=== PATIENT | female | born 1940 | race Caucasian/White ===

== ENCOUNTER 2023-07-15 17:15 | Inpatient (IN) | payer OTHER, MEDICAID ==
[~2023-07-15] VITALS: Ht 160 cm; Wt 99.5 kg
[2023-07-15 17:33] VITALS: PULSE 50; RESP 20; O2SAT 98
[2023-07-15 18:26] LABS: Basophils # (auto) 0 10 ^3/uL (0-0.2); Basophils % (auto) 0.6 % (0.0-2.0); Eosinophils # (auto) 0 10 ^3/uL (0-0.8); Eosinophils % (auto) 0.5 % (0.0-7.0); Hematocrit 40.4 % (36.0-46.0); Hemoglobin 12.8 g/dL (12.2-16.2); Lymphocytes # (auto) 1.2 10 ^3/uL (0.4-5.4); Lymphocytes % (auto) 18.3 % (10.0-50.0); Mean Corpuscular Hemoglobin 31.3 pg (28.0-32.0); Mean Corpuscular Hgb Conc. 31.7 g/dL (32.0-36.0); Mean Corpuscular Volume 98.8 fL (80.0-100.0); Monocytes # (auto) 0.5 10 ^3/uL (0-1.3); Monocytes % (auto) 6.8 % (0.0-12.0); Neutrophils % (auto) 73.8 % (37.0-80.0); Nucleated Red Blood Cells % 0.5 %; Red Blood Cells 4.08 10^6/uL (4.0-5.20); Red Cell Distribution Width 18.1 % (11.8-14.3); White Blood Cell 6.8 10^3/uL (4.4-10.8)
[2023-07-15 18:45] VITALS: PULSE 44; O2SAT 96
[2023-07-15 18:45] LABS: Alanine Aminotransferase 34 U/L (7-40); Albumin 3.5 g/dL (3.2-4.8); Alkaline Phosphatase 274 U/L (46-116); Anion Gap 4 (5-15); Aspartate Aminotransferase 37 U/L (13-40); BUN/Creatinine Ratio 38.5 (10.0-20.0); Bilirubin, Total 0.4 mg/dL (0.2-1.0); Blood Urea Nitrogen 25 mg/dL (9-23); Calcium 8.8 mg/dL (8.7-10.4); Carbon Dioxide 29 mmol/L (20-30); Chloride 105 mmol/L (98-107); Glucose 137 mg/dL (74-106); Potassium 5.1 mmol/L (3.5-5.1); Sodium 138 mmol/L (136-145); Total Protein 6.2 g/dL (5.7-8.2)
[2023-07-15] MEDS: ATROPINE SULF 1 MG/10ml SYR IV ONE (18:55)
[2023-07-15] MEDS: GLUCAGON EMERG KIT 1mg/1ml IV ONE ×2 (19:06→20:43)
[2023-07-15] MEDS: DOPamine 1600MCG/ML D5W 250 ML IV ONE (19:20)
[2023-07-15 19:28] LABS: Base Excess -0.4 mmol/L (-2.0-2.0)
[2023-07-15] MEDS: GLUCAGON EMERG KIT 1mg/1ml ONE (19:28)
[2023-07-15 19:30] VITALS: PULSE 42; RESP 15; O2SAT 95
[2023-07-15] MEDS: SODIUM BICARB 50mEq/50ml Vial 50 ML in SOD CHL 0.45% 1,000 ML IV ONE (19:51)
[2023-07-15] MEDS: ENOXAPARIN SOD 100 MG/1 ML SYRINGE SC ONE (19:54)
[2023-07-15 20:30] VITALS: BP 125/62; PULSE 56; O2SAT 95
[2023-07-15] MEDS: IOHEXOL 350 MG/ML 100ML IJ ONE (20:44)
[2023-07-15 21:30] VITALS: BP 112/51; PULSE 87; RESP 23; O2SAT 93
[2023-07-15] MEDS: MORPHINE SULFATE 4 MG/ML SYR/VIAL IV ONE (21:34)
[2023-07-15] MEDS: ONDANSETRON HCL 4 MG/2 ML VIAL IV ONE (21:34)
[2023-07-15] MEDS ORDERED: NITROGLYCERIN 0.4 MG SL TAB SL PRN (21:45)
[2023-07-15] MEDS ORDERED: ONDANSETRON HCL 4 MG/2 ML VIAL IV PRN (21:45)
[2023-07-15] MEDS ORDERED: MORPHINE SULFATE INJ 2 MG/ml SYRG IV PRN (21:45)
[2023-07-15] MEDS: ATORVASTATIN 20 MG TAB PO SCH (22:00)
[2023-07-15 22:08] LABS: Urine Bacteria FEW /hpf (None Seen); Urine Blood Negative /uL (Negative); Urine Clarity Clear (Clear); Urine Color Yellow (Yellow); Urine Hyaline Cast FEW /lpf (0 - 2); Urine Mucus FEW (None Seen); Urine Protein, UAD 1+ (Negative); Urine Urobilinogen 2 mg/dL (Negative); Urine WBC 1 /hpf (0 - 5); Urine pH 5.5 (5.0-9.0)
[2023-07-15 22:30] VITALS: BP 109/51; PULSE 94; O2SAT 95
[2023-07-16] VITALS (102 sets, daily range): BP systolic 80–130; BP diastolic 14–73; PULSE 58–95; RESP 8–24; TEMP 94.6–99.5; O2SAT 91–97
[2023-07-16] MEDS: ALBUTEROL SULF 2.5 MG/0.5ML(0.5%) NEB SOLN NEB PRN (00:06)
[2023-07-16 00:59] LABS: Base Excess -3.2 mmol/L (-2.0-2.0)
[2023-07-16] MEDS: DOPamine 1600MCG/ML D5W 250 ML IV SCH (02:00)
[2023-07-16 03:51] LABS: Basophils # (auto) 0 10 ^3/uL (0-0.2); Basophils % (auto) 0.1 % (0.0-2.0); Eosinophils # (auto) 0 10 ^3/uL (0-0.8); Eosinophils % (auto) 0.1 % (0.0-7.0); Hematocrit 42.5 % (36.0-46.0); Hemoglobin 13.5 g/dL (12.2-16.2); Lymphocytes # (auto) 0.9 10 ^3/uL (0.4-5.4); Lymphocytes % (auto) 5.9 % (10.0-50.0); Mean Corpuscular Hemoglobin 30.8 pg (28.0-32.0); Mean Corpuscular Hgb Conc. 31.7 g/dL (32.0-36.0); Mean Corpuscular Volume 97.4 fL (80.0-100.0); Monocytes # (auto) 1.5 10 ^3/uL (0-1.3); Monocytes % (auto) 10.5 % (0.0-12.0); Neutrophils # (auto) 12.2 10 ^3/uL (1.6-8.6); Neutrophils % (auto) 83.4 % (37.0-80.0); Nucleated Red Blood Cells % 0.1 %; Red Blood Cells 4.37 10^6/uL (4.0-5.20); Red Cell Distribution Width 18.5 % (11.8-14.3); White Blood Cell 14.6 10^3/uL (4.4-10.8)
[2023-07-16 04:05] LABS: Alanine Aminotransferase 37 U/L (7-40); Albumin 3.7 g/dL (3.2-4.8); Alkaline Phosphatase 296 U/L (46-116); Anion Gap 4 (5-15); Aspartate Aminotransferase 41 U/L (13-40); BUN/Creatinine Ratio 31.4 (10.0-20.0); Bilirubin, Total 0.4 mg/dL (0.2-1.0); Blood Urea Nitrogen 22 mg/dL (9-23); Carbon Dioxide 30 mmol/L (20-30); Chloride 102 mmol/L (98-107); Glucose 152 mg/dL (74-106); Potassium 4.9 mmol/L (3.5-5.1); Sodium 136 mmol/L (136-145); Total Protein 6.8 g/dL (5.7-8.2)
[2023-07-16 07:29] LABS: Base Excess -0.8 mmol/L (-2.0-2.0)
[2023-07-16 08:39] LABS: INR 1.03 (0.9-1.15); Partial Thromboplastin Time 32.7 SEC (24.5-34.5); Prothrombin Time 10.9 sec (9.3-11.8)
[2023-07-16] MEDS ORDERED: cefTRIAXone 1GM/50ML D5W 50 ML IV SCH (09:00)
[2023-07-16] MEDS: FUROSEMIDE 40 MG/4 ML VIAL IV SCH (09:45)
[2023-07-16] MEDS: ENOXAPARIN SOD 40 MG/0.4 ML SYRINGE SC SCH (09:45)
[2023-07-16] MEDS: DOXYCYCLINE 100MG/250ML 250 ML IV SCH (09:46)
[2023-07-16] MEDS ORDERED: FUROSEMIDE 40 MG TAB PO SCH (10:00)
[2023-07-16] MEDS ORDERED: HYDROcodone-ACET 5/325MG TAB PO PRN (11:15)
[2023-07-16] MEDS ORDERED: levoFLOXacin 750MG 150 ML IV SCH (11:16)
[2023-07-16 11:22] LABS: Base Excess 0.5 mmol/L (-2.0-2.0)
[2023-07-16 11:29] LABS: Base Excess -0.2 mmol/L (-2.0-2.0)
[2023-07-16] MEDS ORDERED: VANCOMYCIN PER PHARMACY 0 MG IV SCH (12:15)
[2023-07-16] MEDS: NOREPINEPHRINE 8 MG/250ML KIT 250 ML IV SCH (13:00)
[2023-07-16] MEDS: NOREPINEPHRINE 8 MG/250ML KIT 250 ML IV ONE (13:06)
[2023-07-16] MEDS: VANCOMYCIN 1GM/200ML 200 ML IV ONE (13:21)
[2023-07-16] MEDS: CEFEPIME 2GM/50ML NS 50 ML IV ONE (14:22)
[2023-07-16] MEDS: PANTOPRAZOLE 40 MG/10 ML VIAL INJ IV ONE (14:22)
[2023-07-16 19:28] LABS: COVID19 ANTIGEN SOFIA FIA NEGATIVE (NEGATIVE); Rapid Influenza A Negative (Negative)
[2023-07-16 19:30] LABS: Rapid Influenza B Positive (Negative)
[2023-07-16] MEDS: CEFEPIME 2GM/50ML NS 50 ML IV SCH (21:54)
[2023-07-16] MEDS: NYSTATIN TOPICAL POWDER 15GM TOP SCH (21:55)
[2023-07-17] VITALS (110 sets, daily range): BP systolic 62–146; BP diastolic 18–115; PULSE 45–96; RESP 10–26; TEMP 96.8–99.7; O2SAT 88–100
[2023-07-17] MEDS: MORPHINE SULFATE 4 MG/ML SYR/VIAL IV PRN (02:51)
[2023-07-17 03:37] LABS: Basophils # (auto) 0 10 ^3/uL (0-0.2); Basophils % (auto) 0.2 % (0.0-2.0); Eosinophils # (auto) 0 10 ^3/uL (0-0.8); Eosinophils % (auto) 0.1 % (0.0-7.0); Hematocrit 34.7 % (36.0-46.0); Hemoglobin 11.4 g/dL (12.2-16.2); Lymphocytes # (auto) 1.3 10 ^3/uL (0.4-5.4); Mean Corpuscular Hemoglobin 31.8 pg (28.0-32.0); Mean Corpuscular Hgb Conc. 32.8 g/dL (32.0-36.0); Mean Corpuscular Volume 96.9 fL (80.0-100.0); Monocytes # (auto) 1.1 10 ^3/uL (0-1.3); Neutrophils # (auto) 10.1 10 ^3/uL (1.6-8.6); Neutrophils % (auto) 80.7 % (37.0-80.0); Nucleated Red Blood Cells % 0.1 %; Red Blood Cells 3.58 10^6/uL (4.0-5.20); Red Cell Distribution Width 17.4 % (11.8-14.3); White Blood Cell 12.5 10^3/uL (4.4-10.8)
[2023-07-17 03:56] LABS: Alanine Aminotransferase 24 U/L (7-40); Albumin 3.1 g/dL (3.2-4.8); Alkaline Phosphatase 222 U/L (46-116); Anion Gap 6 (5-15); Aspartate Aminotransferase 22 U/L (13-40); BUN/Creatinine Ratio 30.4 (10.0-20.0); Bilirubin, Total 0.5 mg/dL (0.2-1.0); Blood Urea Nitrogen 28 mg/dL (9-23); Calcium 8.6 mg/dL (8.7-10.4); Carbon Dioxide 27 mmol/L (20-30); Chloride 101 mmol/L (98-107); Glucose 133 mg/dL (74-106); Magnesium 1.8 mg/dL (1.6-2.6); Potassium 4.8 mmol/L (3.5-5.1); Sodium 134 mmol/L (136-145); Total Protein 5.7 g/dL (5.7-8.2)
[2023-07-17] MEDS: PANTOPRAZOLE 40 MG/10 ML VIAL INJ IV SCH (07:59)
[2023-07-17 08:10] LABS: Base Excess -0.3 mmol/L (-2.0-2.0)
[2023-07-17] MEDS: OSELTAMIVIR 75 MG CAP PO ONE (08:30)
[2023-07-17] MEDS: VANCOMYCIN 1GM/200ML 200 ML IV SCH (08:36)
[2023-07-17] MEDS: OSELTAMIVIR 30 MG CAP PO SCH (10:00)
[2023-07-17] MEDS: DOPamine 1600MCG/ML D5W 250 ML IV SCH ×2 (11:00→16:30)
[2023-07-17] MEDS: LIDOCAINE 5% TOPICAL PATCH TOP ONE (13:00)
[2023-07-17] MEDS: LEVOTHYROXINE SODIUM 112 MCG TAB PO SCH (17:18)
[2023-07-17] MEDS: LEVOTHYROXINE SODIUM 25 MCG TAB PO SCH (17:21)
[2023-07-17] MEDS: LATANOPROST 0.005 % OPTH(EYE) SOL 2.5ML EACHEYE SCH (20:11)
[2023-07-18] VITALS (112 sets, daily range): BP systolic 70–164; BP diastolic 22–145; PULSE 57–90; RESP 10–28; TEMP 96.8–98; O2SAT 93–99
[2023-07-18 04:21] LABS: Basophils # (auto) 0 10 ^3/uL (0-0.2); Basophils % (auto) 0.2 % (0.0-2.0); Eosinophils # (auto) 0.1 10 ^3/uL (0-0.8); Eosinophils % (auto) 0.5 % (0.0-7.0); Hematocrit 27.4 % (36.0-46.0); Hemoglobin 9.2 g/dL (12.2-16.2); Lymphocytes # (auto) 1.1 10 ^3/uL (0.4-5.4); Lymphocytes % (auto) 9.3 % (10.0-50.0); Mean Corpuscular Hemoglobin 32.2 pg (28.0-32.0); Mean Corpuscular Hgb Conc. 33.4 g/dL (32.0-36.0); Mean Corpuscular Volume 96.4 fL (80.0-100.0); Monocytes % (auto) 8.1 % (0.0-12.0); Neutrophils # (auto) 10.1 10 ^3/uL (1.6-8.6); Neutrophils % (auto) 81.9 % (37.0-80.0); Red Blood Cells 2.85 10^6/uL (4.0-5.20); Red Cell Distribution Width 17.1 % (11.8-14.3); White Blood Cell 12.3 10^3/uL (4.4-10.8)
[2023-07-18 04:44] LABS: Alanine Aminotransferase 19 U/L (7-40); Albumin 2.8 g/dL (3.2-4.8); Alkaline Phosphatase 183 U/L (46-116); Anion Gap 5 (5-15); Aspartate Aminotransferase 20 U/L (13-40); Calcium 8.7 mg/dL (8.7-10.4); Carbon Dioxide 26 mmol/L (20-30); Chloride 104 mmol/L (98-107); Glucose 117 mg/dL (74-106); Magnesium 1.8 mg/dL (1.6-2.6); Sodium 135 mmol/L (136-145)
[2023-07-18 04:45] LABS: Bilirubin, Total 0.6 mg/dL (0.2-1.0); Total Protein 5.2 g/dL (5.7-8.2)
[2023-07-18 04:55] LABS: BUN/Creatinine Ratio 32.4 (10.0-20.0); Blood Urea Nitrogen 24 mg/dL (9-23)
[2023-07-18 07:09] LABS: Base Excess -3.4 mmol/L (-2.0-2.0)
[2023-07-18] MEDS: TIMOLOL EACHEYE SCH (08:07)
[2023-07-18] MEDS: DORZOLAMIDE EACHEYE SCH (08:07)
[2023-07-18] MEDS: BRIMONIDINE 0.2% OPTH Soln 5ml EACHEYE SCH (08:07)
[2023-07-18] MEDS: LIDOCAINE 5% TOPICAL PATCH TOP SCH (09:49)
[2023-07-18] MEDS ORDERED: DORZOLAM-TIMOLOL(2/0.5%) OPTH(EYE) SOLN 10ML OP SCH (10:00)
[2023-07-18] MEDS: RHOPRESSA 0.02% EACHEYE SCH (20:12)
[2023-07-19] VITALS (106 sets, daily range): BP systolic 68–149; BP diastolic 28–65; PULSE 60–114; RESP 10–29; TEMP 97.2–98.2; O2SAT 92–99
[2023-07-19 03:56] LABS: Basophils # (auto) 0 10 ^3/uL (0-0.2); Basophils % (auto) 0.3 % (0.0-2.0); Eosinophils # (auto) 0.1 10 ^3/uL (0-0.8); Hemoglobin 7.9 g/dL (12.2-16.2); Lymphocytes # (auto) 1.4 10 ^3/uL (0.4-5.4); Neutrophils # (auto) 9.8 10 ^3/uL (1.6-8.6); Neutrophils % (auto) 77.8 % (37.0-80.0); White Blood Cell 12.6 10^3/uL (4.4-10.8)
[2023-07-19 03:58] LABS: Eosinophils % (auto) 0.8 % (0.0-7.0); Hematocrit 24.3 % (36.0-46.0); Lymphocytes % (auto) 11.2 % (10.0-50.0); Mean Corpuscular Hemoglobin 31.9 pg (28.0-32.0); Mean Corpuscular Hgb Conc. 32.4 g/dL (32.0-36.0); Mean Corpuscular Volume 98.5 fL (80.0-100.0); Monocytes # (auto) 1.3 10 ^3/uL (0-1.3); Monocytes % (auto) 9.9 % (0.0-12.0); Red Blood Cells 2.46 10^6/uL (4.0-5.20); Red Cell Distribution Width 17.6 % (11.8-14.3)
[2023-07-19 04:14] LABS: Alanine Aminotransferase 18 U/L (7-40); Albumin 2.7 g/dL (3.2-4.8); Alkaline Phosphatase 170 U/L (46-116); Anion Gap 5 (5-15); Aspartate Aminotransferase 19 U/L (13-40); BUN/Creatinine Ratio 36.1 (10.0-20.0); Bilirubin, Total 0.5 mg/dL (0.2-1.0); Blood Urea Nitrogen 22 mg/dL (9-23); Calcium 8.9 mg/dL (8.7-10.4); Carbon Dioxide 26 mmol/L (20-30); Chloride 106 mmol/L (98-107); Glucose 112 mg/dL (74-106); Potassium 4.1 mmol/L (3.5-5.1); Sodium 137 mmol/L (136-145)
[2023-07-19 05:09] LABS: Base Excess -3.4 mmol/L (-2.0-2.0)
[2023-07-19 11:40] LABS: Base Excess -2.2 mmol/L (-2.0-2.0)
[2023-07-19] MEDS: DOCUSATE SOD 100 MG CAP PO SCH (17:27)
[2023-07-19] MEDS: FUROSEMIDE 20 MG/2 ML VIAL IV ONE (17:27)
[2023-07-20] VITALS (102 sets, daily range): BP systolic 82–132; BP diastolic 36–98; PULSE 61–113; RESP 12–34; TEMP 97.9–98.5; O2SAT 88–100
[2023-07-20 04:19] LABS: Eosinophils # (auto) 0.1 10 ^3/uL (0-0.8); Lymphocytes # (auto) 1.3 10 ^3/uL (0.4-5.4); Neutrophils % (auto) 76.2 % (37.0-80.0); Nucleated Red Blood Cells % 0.2 %
[2023-07-20 04:23] LABS: Basophils # (auto) 0 10 ^3/uL (0-0.2); Basophils % (auto) 0.5 % (0.0-2.0); Eosinophils % (auto) 0.7 % (0.0-7.0); Hematocrit 20.5 % (36.0-46.0); Mean Corpuscular Hemoglobin 32.7 pg (28.0-32.0); Mean Corpuscular Hgb Conc. 33.8 g/dL (32.0-36.0); Mean Corpuscular Volume 96.6 fL (80.0-100.0); Monocytes % (auto) 9.6 % (0.0-12.0); Neutrophils # (auto) 7.7 10 ^3/uL (1.6-8.6); Red Blood Cells 2.12 10^6/uL (4.0-5.20); Red Cell Distribution Width 17.3 % (11.8-14.3); White Blood Cell 10.1 10^3/uL (4.4-10.8)
[2023-07-20 04:27] LABS: Chloride 105 mmol/L (98-107); Sodium 137 mmol/L (136-145)
[2023-07-20 04:28] LABS: Anion Gap 5 (5-15); Carbon Dioxide 27 mmol/L (20-30)
[2023-07-20 04:29] LABS: Calcium 8.8 mg/dL (8.7-10.4)
[2023-07-20 04:33] LABS: BUN/Creatinine Ratio 40.4 (10.0-20.0); Blood Urea Nitrogen 21 mg/dL (9-23); Glucose 111 mg/dL (74-106)
[2023-07-20 04:44] LABS: Hemoglobin 6.9 g/dL (12.2-16.2)
[2023-07-20 08:02] LABS: Base Excess -1.8 mmol/L (-2.0-2.0)
[2023-07-20] MEDS: FUROSEMIDE 20 MG/2 ML VIAL IV ONE (18:10)
[2023-07-20] MEDS: ENSURE CLEAR Mixed Berry 8oz Carton PO SCH (18:29)
[2023-07-20] MEDS: ACETAMINOPHEN 325 MG TAB PO PRN (20:02)
[2023-07-20] MEDS: NOREPINEPHRINE 8 MG/250ML KIT 250 ML IV SCH (20:45)
[2023-07-20] MEDS: PANTOPRAZOLE 40 MG/10 ML VIAL INJ IV SCH (22:00)
[2023-07-21] VITALS (93 sets, daily range): BP systolic 77–129; BP diastolic 38–97; PULSE 55–97; RESP 12–31; TEMP 97.6–98.2; O2SAT 86–100
[2023-07-21 04:06] LABS: Basophils # (auto) 0 10 ^3/uL (0-0.2); Eosinophils # (auto) 0.1 10 ^3/uL (0-0.8); Hemoglobin 7.2 g/dL (12.2-16.2); Monocytes # (auto) 0.8 10 ^3/uL (0-1.3); Red Cell Distribution Width 16.4 % (11.8-14.3); White Blood Cell 7.9 10^3/uL (4.4-10.8)
[2023-07-21 04:12] LABS: Basophils % (auto) 0.6 % (0.0-2.0); Eosinophils % (auto) 1.4 % (0.0-7.0); Hematocrit 21.3 % (36.0-46.0); Lymphocytes # (auto) 1.3 10 ^3/uL (0.4-5.4); Lymphocytes % (auto) 16.1 % (10.0-50.0); Mean Corpuscular Hemoglobin 32.6 pg (28.0-32.0); Mean Corpuscular Volume 96.1 fL (80.0-100.0); Monocytes % (auto) 10.1 % (0.0-12.0); Neutrophils # (auto) 5.6 10 ^3/uL (1.6-8.6); Neutrophils % (auto) 71.8 % (37.0-80.0); Red Blood Cells 2.22 10^6/uL (4.0-5.20)
[2023-07-21 04:21] LABS: Anion Gap 3 (5-15); Carbon Dioxide 29 mmol/L (20-30); Chloride 104 mmol/L (98-107); Potassium 3.9 mmol/L (3.5-5.1); Sodium 136 mmol/L (136-145)
[2023-07-21 04:22] LABS: Calcium 8.6 mg/dL (8.7-10.4)
[2023-07-21 04:28] LABS: BUN/Creatinine Ratio 42.6 (10.0-20.0); Blood Urea Nitrogen 20 mg/dL (9-23); Glucose 82 mg/dL (74-106); Magnesium 1.6 mg/dL (1.6-2.6)
[2023-07-21] MEDS: FUROSEMIDE 20 MG/2 ML VIAL IV SCH (10:00)
[2023-07-21] MEDS: MAGNESIUM SULFATE 1GM/100ML 100 ML IV ONE (13:48)
[2023-07-21] MEDS: LACTULOSE 20Gm/30ML SOLN PO ONE (16:12)
[2023-07-21] MEDS: DOCUSATE SOD 100 MG CAP PO ONE (16:13)
[2023-07-22] VITALS (96 sets, daily range): BP systolic 61–130; BP diastolic 28–80; PULSE 67–103; RESP 11–46; TEMP 97.6–97.9; O2SAT 90–98
[2023-07-22 04:10] LABS: Basophils # (auto) 0 10 ^3/uL (0-0.2); Eosinophils # (auto) 0.1 10 ^3/uL (0-0.8); Hemoglobin 7.8 g/dL (12.2-16.2)
[2023-07-22 04:12] LABS: Basophils % (auto) 0.5 % (0.0-2.0); Eosinophils % (auto) 1.6 % (0.0-7.0); Hematocrit 23.5 % (36.0-46.0); Lymphocytes # (auto) 0.9 10 ^3/uL (0.4-5.4); Lymphocytes % (auto) 9.9 % (10.0-50.0); Mean Corpuscular Hemoglobin 32.9 pg (28.0-32.0); Mean Corpuscular Hgb Conc. 33.3 g/dL (32.0-36.0); Mean Corpuscular Volume 98.7 fL (80.0-100.0); Monocytes # (auto) 0.9 10 ^3/uL (0-1.3); Monocytes % (auto) 10.3 % (0.0-12.0); Neutrophils # (auto) 6.9 10 ^3/uL (1.6-8.6); Neutrophils % (auto) 77.7 % (37.0-80.0); Nucleated Red Blood Cells % 0.2 %; Red Blood Cells 2.38 10^6/uL (4.0-5.20); Red Cell Distribution Width 16.9 % (11.8-14.3); White Blood Cell 8.9 10^3/uL (4.4-10.8)
[2023-07-22 04:19] LABS: Anion Gap 3 (5-15); Carbon Dioxide 26 mmol/L (20-30); Chloride 105 mmol/L (98-107); Sodium 134 mmol/L (136-145)
[2023-07-22 04:20] LABS: Calcium 8.8 mg/dL (8.7-10.4)
[2023-07-22 04:24] LABS: Glucose 102 mg/dL (74-106)
[2023-07-22 04:25] LABS: BUN/Creatinine Ratio 39.6 (10.0-20.0); Blood Urea Nitrogen 19 mg/dL (9-23); Magnesium 1.9 mg/dL (1.6-2.6)
[2023-07-22] MEDS: NOREPINEPHRINE 8 MG/250ML KIT 250 ML IV SCH (11:45)
[2023-07-23] VITALS (85 sets, daily range): BP systolic 98–209; BP diastolic 31–99; PULSE 85–101; RESP 10–64; TEMP 97.7–99.8; O2SAT 84–98
[2023-07-23 03:54] LABS: Basophils # (auto) 0 10 ^3/uL (0-0.2); Eosinophils # (auto) 0.1 10 ^3/uL (0-0.8); Hemoglobin 7.6 g/dL (12.2-16.2); Nucleated Red Blood Cells % 0.1 %; Red Cell Distribution Width 16.3 % (11.8-14.3)
[2023-07-23 03:57] LABS: Basophils % (auto) 0.2 % (0.0-2.0); Eosinophils % (auto) 1.3 % (0.0-7.0); Hematocrit 22.9 % (36.0-46.0); Lymphocytes % (auto) 9.2 % (10.0-50.0); Mean Corpuscular Hemoglobin 32.3 pg (28.0-32.0); Mean Corpuscular Volume 97.7 fL (80.0-100.0); Monocytes # (auto) 1.2 10 ^3/uL (0-1.3); Monocytes % (auto) 11.1 % (0.0-12.0); Neutrophils # (auto) 8.6 10 ^3/uL (1.6-8.6); Neutrophils % (auto) 78.2 % (37.0-80.0); Red Blood Cells 2.35 10^6/uL (4.0-5.20)
[2023-07-23 04:03] LABS: Alanine Aminotransferase 35 U/L (7-40); Alkaline Phosphatase 175 U/L (46-116); Anion Gap 5 (5-15); Aspartate Aminotransferase 36 U/L (13-40); Bilirubin, Total 0.7 mg/dL (0.2-1.0); Blood Urea Nitrogen 18 mg/dL (9-23); Calcium 8.7 mg/dL (8.7-10.4); Carbon Dioxide 26 mmol/L (20-30); Chloride 105 mmol/L (98-107); Glucose 101 mg/dL (74-106); Magnesium 1.7 mg/dL (1.6-2.6); Potassium 4.2 mmol/L (3.5-5.1); Sodium 136 mmol/L (136-145); Total Protein 4.9 g/dL (5.7-8.2)
[2023-07-23 04:31] LABS: Albumin 2.7 g/dL (3.2-4.8)
[2023-07-23 09:54] LABS: Base Excess -0.6 mmol/L (-2.0-2.0)
[2023-07-23 10:02] LABS: Rapid Influenza A Negative (Negative); Rapid Influenza B Negative (Negative)
[2023-07-23] MEDS: MAGNESIUM OXIDE 400 MG TAB PO SCH (11:24)
[2023-07-23] MEDS ORDERED: hydrALAZINE HCL 20 MG/ML VL IV SCH (14:00)
[2023-07-23] MEDS: FUROSEMIDE 40 MG TAB PO ONE (14:35)
[2023-07-23] MEDS ORDERED: hydrALAZINE HCL 20 MG/ML VL IV PRN (14:45)
[2023-07-23] MEDS: DOXYCYCLINE 100MG/250ML 250 ML IV SCH (16:42)
[2023-07-23 19:50] LABS: Urine Bacteria FEW /hpf (None Seen); Urine Blood Negative /uL (Negative); Urine Clarity Clear (Clear); Urine Color Colorless (Yellow); Urine Protein, UAD Negative (Negative); Urine Specific Gravity 1.005 (1.001-1.035); Urine Urobilinogen Normal (Negative); Urine WBC <1 /hpf (0 - 5)
[2023-07-24] VITALS (38 sets, daily range): BP systolic 94–163; BP diastolic 48–89; PULSE 84–109; RESP 12–98; TEMP 96.8–98.8; O2SAT 89–98
[2023-07-24 04:33] LABS: Eosinophils # (auto) 0.2 10 ^3/uL (0-0.8); Monocytes # (auto) 1.4 10 ^3/uL (0-1.3); Neutrophils # (auto) 11.6 10 ^3/uL (1.6-8.6)
[2023-07-24 04:34] LABS: Basophils # (auto) 0.3 10 ^3/uL (0-0.2); Basophils % (auto) 1.9 % (0.0-2.0); Eosinophils % (auto) 1.4 % (0.0-7.0); Hemoglobin 7.4 g/dL (12.2-16.2); Lymphocytes # (auto) 1.4 10 ^3/uL (0.4-5.4); Lymphocytes % (auto) 9.6 % (10.0-50.0); Mean Corpuscular Hemoglobin 33.1 pg (28.0-32.0); Mean Corpuscular Hgb Conc. 33.5 g/dL (32.0-36.0); Mean Corpuscular Volume 98.9 fL (80.0-100.0); Monocytes % (auto) 9.4 % (0.0-12.0); Neutrophils % (auto) 77.7 % (37.0-80.0); Nucleated Red Blood Cells % 0.1 %; Red Blood Cells 2.23 10^6/uL (4.0-5.20); Red Cell Distribution Width 16.7 % (11.8-14.3); White Blood Cell 14.9 10^3/uL (4.4-10.8)
[2023-07-24 04:45] LABS: Alanine Aminotransferase 34 U/L (7-40); Albumin 2.8 g/dL (3.2-4.8); Alkaline Phosphatase 177 U/L (46-116); Anion Gap 3 (5-15); Aspartate Aminotransferase 38 U/L (13-40); BUN/Creatinine Ratio 37.5 (10.0-20.0); Bilirubin, Total 0.7 mg/dL (0.2-1.0); Blood Urea Nitrogen 18 mg/dL (9-23); Calcium 8.6 mg/dL (8.7-10.4); Carbon Dioxide 30 mmol/L (20-30); Chloride 103 mmol/L (98-107); Glucose 110 mg/dL (74-106); Magnesium 1.7 mg/dL (1.6-2.6); Phosphorus 3.1 mg/dL (2.4-5.1); Potassium 4.2 mmol/L (3.5-5.1); Sodium 136 mmol/L (136-145); Total Protein 5.1 g/dL (5.7-8.2)
[2023-07-24] MEDS: FUROSEMIDE 40 MG TAB PO SCH (07:55)
[2023-07-25] VITALS (7 sets, daily range): BP systolic 97–164; BP diastolic 48–83; PULSE 68–90; RESP 16–19; TEMP 96.4–98.6; O2SAT 91–95
[2023-07-25 06:39] LABS: Calcium 8.6 mg/dL (8.7-10.4); Chloride 102 mmol/L (98-107); Sodium 136 mmol/L (136-145)
[2023-07-25 06:40] LABS: Anion Gap 3 (5-15); Carbon Dioxide 31 mmol/L (20-30)
[2023-07-25 06:43] LABS: Hematocrit 21.6 % (36.0-46.0)
[2023-07-25 06:45] LABS: BUN/Creatinine Ratio 35.4 (10.0-20.0); Blood Urea Nitrogen 17 mg/dL (9-23); Glucose 105 mg/dL (74-106)
[2023-07-25 06:46] LABS: Magnesium 1.5 mg/dL (1.6-2.6)
[2023-07-25 06:47] LABS: Hemoglobin 7.3 g/dL (12.2-16.2); Mean Corpuscular Hemoglobin 32.6 pg (28.0-32.0); Mean Corpuscular Hgb Conc. 33.6 g/dL (32.0-36.0); Mean Corpuscular Volume 96.8 fL (80.0-100.0); Red Blood Cells 2.23 10^6/uL (4.0-5.20); White Blood Cell 9.5 10^3/uL (4.4-10.8)
[2023-07-25 06:52] LABS: Band Neutrophils % (manual) 0; Basophils % (manual) 0 (0.0-2.0); Blast Cells 0; Eosinophils % (manual) 0 (0-7); Metamyelocytes % 0; Myelocytes % 0; Promyelocytes % 0
[2023-07-25 08:24] LABS: Lymphocytes % (manual) 14 (10.0-50.0); Monocytes % (manual) 10 (0-12); Platelet Estimate Adequate; Reactive Lymphocytes 3; Stomatocytes Few
[2023-07-25 08:25] LABS: Ovalocytes FEW
== END 2023-07-25 16:45 | DRG 871 ==
LOC: ER 17:15 → EDBD 17:15 → TELE 21:48 → ICU WEST 07-16 01:20 → TELE-WESTW 07-24 16:53
PROVIDERS: ADMIT Internal Medicine; ATTEND Internal Medicine
PROC: 5A09457 Assistance with Respiratory Ventilation, 24-96 Consecutive Hours, Continuous Positive Airway Pressure (ICD-10-PCS; 2023-07-15)
PROC: 03JY3ZZ Inspection of Upper Artery, Percutaneous Approach (ICD-10-PCS; 2023-07-16)
PROC: 06HY33Z Insertion of Infusion Device into Lower Vein, Percutaneous Approach (ICD-10-PCS; 2023-07-17)
PROC: B54BZZA Ultrasonography of Right Lower Extremity Veins, Guidance (ICD-10-PCS; 2023-07-17)
PROC: 5A09357 Assistance with Respiratory Ventilation, Less than 24 Consecutive Hours, Continuous Positive Airway Pressure (ICD-10-PCS; 2023-07-19)
PROC: 30233N1 Transfusion of Nonautologous Red Blood Cells into Peripheral Vein, Percutaneous Approach (ICD-10-PCS; principal; 2023-07-20)
PROC: 5A09357 Assistance with Respiratory Ventilation, Less than 24 Consecutive Hours, Continuous Positive Airway Pressure (ICD-10-PCS; 2023-07-20)
PROC: 5A09357 Assistance with Respiratory Ventilation, Less than 24 Consecutive Hours, Continuous Positive Airway Pressure (ICD-10-PCS; 2023-07-21)
PROC: 5A09357 Assistance with Respiratory Ventilation, Less than 24 Consecutive Hours, Continuous Positive Airway Pressure (ICD-10-PCS; 2023-07-23)
DX: A41.9 Sepsis, unspecified organism (principal); J10.08 Influenza due to other identified influenza virus with other specified pneumonia; J15.69 Pneumonia due to other Gram-negative bacteria; J15.9 Unspecified bacterial pneumonia; R65.21 Severe sepsis with septic shock; J96.01 Acute respiratory failure with hypoxia; J96.02 Acute respiratory failure with hypercapnia; M48.54XA Collapsed vertebra, not elsewhere classified, thoracic region, initial encounter for fracture; E87.4 Mixed disorder of acid-base balance; G93.1 Anoxic brain damage, not elsewhere classified; J90 Pleural effusion, not elsewhere classified; Z20.822 Contact with and (suspected) exposure to COVID-19; Z66 Do not resuscitate; K80.20 Calculus of gallbladder without cholecystitis without obstruction; K43.9 Ventral hernia without obstruction or gangrene; T50.905A Adverse effect of unspecified drugs, medicaments and biological substances, initial encounter; E78.5 Hyperlipidemia, unspecified; E03.9 Hypothyroidism, unspecified; E66.9 Obesity, unspecified; Z96.643 Presence of artificial hip joint, bilateral; I11.0 Hypertensive heart disease with heart failure; D69.6 Thrombocytopenia, unspecified; T44.7X5A Adverse effect of beta-adrenoreceptor antagonists, initial encounter; H40.9 Unspecified glaucoma; M48.05 Spinal stenosis, thoracolumbar region; G31.89 Other specified degenerative diseases of nervous system; E83.42 Hypomagnesemia; D64.9 Anemia, unspecified; Z88.0 Allergy status to penicillin; Z79.899 Other long term (current) drug therapy; Z82.61 Family history of arthritis; Z68.38 Body mass index [BMI] 38.0-38.9, adult
CPT/HCPCS: 36415; 36600; 71045; 71275; 74018; 76604; 80048; 80053; 80202; 81001; 82270; 82533; 82565; 82805; 82962; 83036; 83605; 83735; 83880; 84100; 84443; 84484; 85007; 85025; 85027; 85379; 85610; 85730; 86850; 86900; 86901; 86920; 87040; 87081; 87426; 87804; 93005; 93306; 94640; 94660; 97110; 97116; 97163; 97530; 99291; C9113; G0378; G9035; J0692; J2405; J3490